=== PATIENT | male | born 1970 | race Caucasian/White ===

== ENCOUNTER 2019-04-27 08:19 | Outpatient (RCR) | payer MEDICARE, SELFPAY ==
[2019-04-27] VITALS (8 sets, daily range): BP systolic 84–112; BP diastolic 59–93; PULSE 82–93; RESP 14–16; TEMP 36.8–37.9; O2SAT 97–100
[2019-04-27 08:45] LABS: Hematocrit 22.9 % (42.0-52.0); Hemoglobin 7.2 g/dL (14.0-18.0)
[2019-04-27] MEDS: FUROSEMIDE INJ 40 MG/4 ML VIAL 20 MG IV PUSH (12:19)
== END 2019-07-26 23:59 | disposition home or self-care (01) ==
LOC: ANHCPCTRAN 08:19
PROVIDERS: PCP Family Medicine; Visit Provider Internal Medicine Hematology & Oncology
DX: C34.90 Malignant neoplasm of unspecified part of unspecified bronchus or lung (principal); D64.9 Anemia, unspecified
CPT/HCPCS: 36415; 36430; 85014; 85018; 86850; 86900; 86901; 86920; A9270; J1940; P9016

== ENCOUNTER 2019-07-08 15:52 | Outpatient (CLI) | payer MEDICARE, SELFPAY ==
--- NOTE | ~2019-07-08 | CT_ITS ---
EXAMINATION: CT chest abdomen pelvis w con EXAM DATE: 07/08/2019 16:49 INDICATION: Non-small cell lung cancer right upper lobe. L3, left ilium metastatic lesions. TECHNIQUE: Spiral CT of the chest, abdomen and pelvis was performed following intravenous injection o f 100 mL Omnipaque 350. Axial, coronal and sagittal images were reviewed. Coronal maximum intensity pixel images of chest reviewed. The dose-length product (DLP) for this examination was 313.50 mGy-c m. The exposure was tailored according to patient size (auto mA exposure control), and iterative rec onstruction (ASIR) was used as additional dose reduction technique. Comparison is made to prior exami nation from 05/27/2019, 05/14/2019. FINDINGS: CHEST: There is a left-sided Chemo-Port. There is mild to moderate emphysema. There is right upper l obe mass invading the posterior medial pleura and the right sides of the L2, L3, L4 and L5 vertebral bodies, the L2-L4 ribs posteromedially with pathological compression fractures L3, L4 and L5 unchange d. This mass measures about 3 x 5 cm in greatest axial dimension, appears slightly less bulky, but ov erall similar dimensions on prior chest CT 05/14/2019. Small pericardial effusion. There is debris in the right lower lobe bronchus. There is a precarinal lymph node measuring 1.6 x 0.8 cm, upper arita its of normal in size. No central pulmonary emboli. There is no pneumothorax. Heart normal in size . There is mild coronary arterial calcification, arterial sclerosis. ABDOMEN PELVIS: There is right liver lobe hypodense lesion measuring 1 cm, may have peripheral nodula r enhancement seen, probably a hemangioma but difficult to exclude metastatic lesion. The gallbladde r is contracted but otherwise unremarkable. Spleen, adrenal glands, pancreas are unremarkable. Con l and splenic veins are patent. Kidneys enhance symmetrically. There is no hydronephrosis. The pr ostate is unremarkable. The bladder is unremarkable. There is no retroperitoneal or pelvic lymphade nopathy. The appendix is normal. The stomach and small bowel are unremarkable. There is expected amount of c olonic stool. No free intraperitoneal gas. Lumbar fusion hardware, corpectomy L4-S1. Again there is left iliac osteolytic metastatic lesion with demineralized cortex. L3 osteolytic lesion also appe ars unchanged. Right third rib osteolytic lesion now with pathological fracture. Right sixth rib suba cute fracture. IMPRESSION: 1. Right upper lobe, posteromedial mass invading pleura, bones, may have slight decrease in bulk but overall dimensions not significantly changed. 2. Development of pathological right third rib fracture. Otherwise stable appearing osteolytic disea se. 3. Small liver lesion more likely hemangioma than metastatic. Reviewed, dictated and finalized at location A. ACUTE CARE NURSE IMPRESSION: 1. Right upper lobe, posteromedial mass invading pleura, bones, may have sligh t decrease in bulk but overall dimensions not significantly changed. 2. Development of pathological right third rib fracture. Otherwise stable appe aring osteolytic disease. 3. Small liver lesion more likely hemangioma than metastatic.
== END 2019-07-08 15:53 | disposition home or self-care (01) ==
LOC: ANHIMG 15:53
PROVIDERS: Visit Provider Internal Medicine Hematology & Oncology
DX: C34.90 Malignant neoplasm of unspecified part of unspecified bronchus or lung (principal); K76.89 Other specified diseases of liver
CPT/HCPCS: 71260; 74177; Q9967

== ENCOUNTER 2019-10-04 07:20 | Outpatient (CLI) | payer MEDICARE, SELFPAY ==
--- NOTE | ~2019-10-04 | CT_ITS ---
EXAMINATION: CT chest abdomen pelvis w con DATE: 10/04/2019 08:02 INDICATION: Non-small cell lung cancer TECHNIQUE: Transaxial computed tomographic images of the chest, abdomen, and pelvis were obtained aft er the administration of 100 cc of Omnipaque 350 intravenous contrast. The dose-length product (DLP) was 268.54 mGy-cm. Automated exposure control and iterative reconstruction technique were employed. COMPARISON: 07/08/2019 FINDINGS: CHEST CT: There is moderate emphysema. There has been slight interval decrease in size in a pleural-based mass of the posteromedial right lung apex. The mass measures 4.3 x 2.1 cm, previously 4.7 x 2.5 cm. There is unchanged erosion of the mass into the T2-T5 vertebral bodies and the right third through fifth ri bs. There are unchanged pathologic compression fractures of T3, T4, and T5. A left internal jugular P ort-A-Cath ends with its tip in the right atrium. The heart size is normal. There are no pathological ly enlarged thoracic lymph nodes. Healing fractures of the right lateral third rib and left posterior eighth rib are noted. ABDOMEN/PELVIS CT: A stable hemangioma is noted in the right hepatic lobe. The spleen, pancreas, gallbladder, and adrena l glands are normal. The kidneys are unremarkable. A large volume of colonic stool is present. No pat hologically enlarged abdominal or pelvic lymph nodes are identified. There is no free intraperitoneal gas or evidence of bowel obstruction. There is diffuse anasarca. Changes of anterior and posterior f usion are noted from L4 through S1. A stable lytic lesion of the L3 vertebral body is again noted. IMPRESSION: 1. Right upper lobe mass with slight decrease in size. Invasion of the chest wall, posterolateral upp er ribs, and adjacent vertebral bodies is unchanged. Pathologic vertebral body fractures and rib frac tures are stable. Reviewed, dictated and finalized at location A. IMPRESSION: 1. Right upper lobe mass with slight decrease in size. Invasion of the chest wa ll, posterolateral upper ribs, and adjacent vertebral bodies is unchanged. Path ologic vertebral body fractures and rib fractures are stable.
== END 2019-10-04 07:21 | disposition home or self-care (01) ==
LOC: ANHIMG 07:23
PROVIDERS: Visit Provider Internal Medicine Hematology & Oncology
DX: C34.90 Malignant neoplasm of unspecified part of unspecified bronchus or lung (principal); R91.8 Other nonspecific abnormal finding of lung field; M84.48XA Pathological fracture, other site, initial encounter for fracture
CPT/HCPCS: 71260; 74177; Q9967

== ENCOUNTER 2019-12-23 11:44 | Emergency (ER) | payer MEDICARE, SELFPAY ==
[2019-12-23 12:24] VITALS: BP 91/62; PULSE 88; RESP 14; TEMP 36.7; O2SAT 100
--- NOTE | 2019-12-23 12:26 | ED.GENADULT ---
HPI - General Adult General Chief complaint: Back Pain/Injury Stated complaint: has cancer in pain from lesions Time Seen by Provider: 12/23/19 12:27 History of Present Illness HPI narrative: 49-year-old male patient arrives to the ER accompanied by his with complaints of severe intolerable pain in his lower back. This patient has a significant history of small cell carcinoma of the lung and is currently on Keytruda. He is under care of an oncologist at [facility] and has received some radiation therapy and chemotherapy in the past. The patient is known to have some metastatic lesions to the lower back. Currently he is on fentanyl patch which is changed every 48 hours and he also gets morphine 60 mg twice a day for breakthrough pain as well as hydrocodone 10 mg every 4 hours. His last dose of hydrocodone was at 11:00 a.m.. The patient states that the pain is unbearable. His last fentanyl patch was changed yesterday. He has the usual complaints of feeling weak. However he denies any new complaints of any shortness of breath or fever or chills. The 0 states that he was scheduled for a CT scan at [facility] and since he has had that at the cancel it. She also indicates that he is supposed to see his oncologist on Friday and she is not sure when the CT scan will be repeated. Patient's indicates that he has had a low hemoglobin hematocrit in the past and she thinks that his color is off today. She would like some blood work done. Related Data Home Medications Medication Instructions Recorded Confirmed alprazolam 0.25 mg PO TID PRN 03/04/19 12/23/19 hydrocodone-acetaminophen 1 tablet PO Q4-6H PRN 03/04/19 12/23/19 calcium carbonate 600 mg PO TID 11/15/19 12/23/19 fentanyl 50 mcg TRANSDERMAL Q72H 12/23/19 12/23/19 morphine 60 mg PO BID 12/23/19 12/23/19 Allergies Allergy/AdvReac Type Severity Reaction Status Date / Time bee venom protein (honey bee) Allergy Severe Anaphylaxis Verified 11/15/19 14:22 ibuprofen Allergy Intermediate Hives Verified 11/15/19 14:22 Review of Systems Review of Systems: All systems reviewed & are unremarkable except as noted in HPI and below Constitutional: Constitutional: Denies chills and Denies fever(s) Eyes: Eyes: Reports no additional eye complaints ENT: Reports system reviewed and no additional complaints, except as documented and Reports as per HPI Cardiovascular: Cardiovascular: Reports no additional cardiovascular complaints Respiratory: Respiratory: Reports no additional respiratory complaints Genitourinary: Genitourinary: Reports no additional male genitourinary complaints Musculoskeletal: Musculoskeletal: Reports as per HPI, Reports back pain, Denies joint swelling and Denies muscle cramps Integumentary/Breasts: Skin/Breast: Reports system reviewed and no additional complaints, except as docu Neurologic: Reports system reviewed and no additional complaints, except as documented Psychiatric: Psychiatric: Reports no additional psychiatric complaints Endocrine: Endocrine: Reports no additional endocrine complaints PMFSH Past Medical History Medical History Bone metastasis Non-small cell lung cancer Surgical History Surgical History History of lumbar fusion Family History Family History Mother Hypertension Other Diabetes mellitus Family history of arthritis Family history of cardiovascular disease Family history of malignant neoplasm Social History Social History Smoking status: Former smoker Alcohol intake: current Gender identity (if verbalized by the patient): Male Exam Narrative: Exam Narrative: The patient is alert and oriented to time place and person he appears very cachectic and very ill. He is in significant amou
--- NOTE | 2019-12-23 12:30 | PC.NURSE ---
Pts fentanyl patches removed per spouse
[2019-12-23] MEDS: HYDROmorphone HCL 2 MG/ML VIAL 1 MG IV PUSH (12:50)
[2019-12-23 12:58] LABS: Hematocrit 26.7 % (40.0-54.0); Mean Corpuscular Volume 90.2 fL (78.0-102.0); Mean Platelet Volume 10.6 fl (8.7-11.0); Platelet Count Result 320 K/mm3 (150-420); Red Blood Count 2.96 M/mm3 (4.70-6.10); Red Cell Distribution Width 17.1 % (11.6-14.4)
[2019-12-23 13:04] LABS: White Blood Count 26.3 K/mm3 (4.8-10.8)
[2019-12-23 13:12] VITALS: BP 92/61; PULSE 82; RESP 18
[2019-12-23 13:12] LABS: Alanine Aminotransferase 8 U/L (16-63); Albumin Level 2.5 g/dL (3.4-5.0); Alkaline Phosphatase 143 U/L (46-116); Anion Gap 10.2 mmol/L (7-16); Aspartate Amino Transferase 16 U/L (15-37); Bilirubin,Total 0.2 mg/dL (0.00-1.00); Blood Urea Nitrogen 11 mg/dL (7-18); Calcium 8.4 mg/dL (8.5-10.1); Carbon Dioxide 28 mmol/L (21-32); Chloride 101 mmol/L (98-108); Estimated CRCL calculation 95 ml/min; Estimated Glomerular Filt Rate > 60; Glucose 93 mg/dL (70-99); Osmolality Calculated 279 mOsm/kg (285-295); Potassium 4.2 mmol/L (3.5-5.1); Sodium 135 mmol/L (136-145); Total Protein 7.9 g/dL (6.4-8.2)
[2019-12-23 13:25] LABS: Band Neutrophils Percent 0 % (0-6); Eosinophils Percent Manual 0 % (1-6); Lymphocytes Absolute Manual 1.84 K/mm3 (1.1-4.5); Lymphocytes Percent Manual 7 % (18-44); Monocytes Absolute Manual 1.05 K/mm3 (0.1-0.90); Monocytes Percent Manual 4 % (3-9); Neutrophils Percent Manual 89 % (46-73); Platelet Estimate Adequate (Adequate); Total Cells Counted 100
--- NOTE | 2019-12-23 13:46 | PC.NURSE ---
Dr. Jiménez speaking with Dr. Ochoa, pts oncologist at [facility].
--- NOTE | 2019-12-23 14:11 | PC.NURSE ---
[facility] CONTACTED FOR HOSPITALIST.
--- NOTE | 2019-12-23 14:48 | PC.NURSE ---
Pt requesting to speak with edp, edp aware.
--- NOTE | 2019-12-23 14:54 | PC.NURSE ---
Dr. Jiménez speaking with Daisy jay at [facility]
[2019-12-23 14:56] VITALS: BP 94/64; PULSE 82; RESP 16
[2019-12-23] MEDS: HYDROmorphone HCL 2 MG/ML VIAL 0.5 MG IV PUSH ×3 (15:05→16:50)
[2019-12-23 15:28] VITALS: BP 92/64; PULSE 88; RESP 16
[2019-12-23 16:25] VITALS: BP 93/61; PULSE 87
== END 2019-12-23 17:03 | disposition short-term general hospital (02) ==
PROVIDERS: Emergency Provider Emergency Medicine; PCP Internal Medicine Hematology & Oncology
DX: C34.90 Malignant neoplasm of unspecified part of unspecified bronchus or lung (principal); C79.51 Secondary malignant neoplasm of bone; R52 Pain, unspecified
CPT/HCPCS: 36415; 80053; 85025; 96374; 96376; 99285; J1170

== ENCOUNTER 2019-12-23 18:30 | Inpatient (IN) | payer MEDICARE, MEDICAID, SELFPAY ==
--- NOTE | ~2019-12-23 | CT_ITS ---
EXAMINATION: CT chst ab pel thor lum w EXAM DATE: 12/24/2019 14:57 INDICATION: Further evaluate cancer, underlying infection. Non-small cell lung cancer. TECHNIQUE: Spiral CT of the chest, abdomen and pelvis was performed following intravenous injection o f 100 mL Omnipaque 350. Axial, coronal and sagittal images were reviewed. Coronal maximum intensity pixel images of chest reviewed. Spiral CT thoracolumbar spine was performed with the same bolus of contrast. Axial, coronal and sagittal images of the thoracic spine were reviewed. Axial, coronal and sagittal images of the lumbar spine were reviewed. The dose-length product (DLP) for this examination was 413.12 mGy-cm. The exposure was tailored according to patient size (auto mA exposure control), and iterative reconstruction (ASIR) was used as additional dose reduction technique. Comparison is ma de to prior examination from 10/04/2019. FINDINGS: CHEST: Again there is right upper lobe mass near the apex posterior medially invading the pleura, ch est wall, bones. The size of mass and extent of bony invasion appears unchanged, with greatest axial dimension about 4.5 cm. Bony invasion present at the T2, T3, T4 and T5 vertebral bodies. There are pa thological compression fractures at T3-T4 and T5, with moderate to severe loss of height at T4, moder ate at T3, and mild to moderate at T5. The right side of these ribs are also invaded. There is also developing malignant soft tissue surrounding the spine from the mid aspect of T7 to the upper aspect of T9 with heterogeneous enhancement, some invasion of the T8 vertebral body and its le ft pedicle. There is epidural extension identified along the left half of the epidural space posterio r to the T8 vertebral body, probably causing moderate central canal stenosis. Might be something bartolo table by focal radiation. Please correlate for any neurological symptoms. There is 3rd rib similar soft tissue density surrounding the right 3rd rib laterally with heterogeneo us enhancement, osseous invasion and pathological fracture. There are no pleural or pericardial effusions. Tracheobronchial tree is patent. There is mild emphy sema and moderate hyperinflation. There is no mediastinal, hilar or axillary lymphadenopathy. There is no pneumothorax. Heart normal in size. ABDOMEN PELVIS: There is generalized body wall, mesenteric fat stranding, anasarca. Patient is cachec tic. Small right liver lobe lesion, measuring 7 mm, probably a hemangioma correlating with prior st udies. Gallbladder is unremarkable. No biliary obstruction. Portal and splenic veins are patent. Kidneys enhance symmetrically. There is no hydronephrosis. The prostate is unremarkable. The blad audie is unremarkable. There is no retroperitoneal or pelvic lymphadenopathy. There is mild scattere d arteriosclerotic disease. The appendix is not positively visualized. There is no pericecal inflammatory change to suggest appe ndicitis. The stomach and small bowel are unremarkable. There is moderate to large amount of colon ic stool. Scattered colonic diverticula, with sensitivity for diverticulitis significantly decreased from the anasarca, generalized edema. There may be small amount of free pelvic fluid. No free intra peritoneal gas. THORACOLUMBAR SPINE: Again there is osteolytic disease in the L3 vertebral body. There is large regio n of paraspinal soft tissue centered at this level, but extending from mid L2 to mid L4. There is quintin pected to be epidural extension probably causing moderate central canal stenosis at the L3 level. L4- S1 fusion is unchanged. There is mild to moderate lumbar spondylosis. Mild thoracic spondylosis. Ben tional thoracic findings were described above. IMPRESSION: 1. Stable appearance to the right upper lobe posterior medial mass with pleural, spinal invasion. 2. Developing paraspinal soft tissue
--- NOTE | ~2019-12-23 | MR_ITS ---
EXAMINATION: MR lumbar spine wo con EXAM DATE: 12/25/2019 13:36 INDICATION: Increasing back pain. TECHNIQUE: Multi-sequential, multiplanar MR images of the lumbar spine were obtained without contrast . Sagittal T1, T2, T2 fat saturation images. Axial T1 fat saturation sequence. Patient declined fur ther imaging due to pain. Comparison is made to prior examination from 08/30/2011. FINDINGS: There is abnormal bone marrow signal involving most of the L3 vertebral body with heterogen eous large amount of paraspinal abnormal signal centered along the anterolateral aspects of this vert ebral body, but extending up to mid L2 and down to mid L4 levels. At the L3 level abnormal paraspinal signal is up to about 2 cm in thickness anterolaterally, and extends about 4 mm posteriorly (the ant erior epidural space). This is causing mild to moderate central canal stenosis posterior to the L3 ve rtebral body. Also, evidence of extraosseous extension into the left L3-4 neural foramina, probably w ith moderate stenosis at this level. There is normal signal within the L2-3 disc space and mild disc desiccation at the L3-4 disc space, no edema (no evidence of discitis in spite of abnormal paraspinal signal crossing disc space). Posterior and interbody fusion L4-S1. The conus medullaris terminates a t the T12-L1 level and has normal signal intensity and morphology. There is mild to moderate stenosi s at the other right L3-4 and bilateral L4-5 neural foramen. Mild to moderate lower lumbar spondylos is. IMPRESSION: Abnormal marrow signal in L3 and larger paraspinal abnormal signal from L2-L4. Correlati ng with prior CT scans, most likely metastatic disease with extraosseous extension, necrosis assuming patient has been receiving chemotherapy. Would be unusual for osteomyelitis to extend from L2 to L4 and not cause discitis, and please note that same process suspected at mid thoracic level and right 3 rd rib. Reviewed, dictated and finalized at location A. IMPRESSION: Abnormal marrow signal in L3 and larger paraspinal abnormal signal from L2-L4. Correlating with prior CT scans, most likely metastatic disease wi th extraosseous extension, necrosis assuming patient has been receiving chemoth erapy. Would be unusual for osteomyelitis to extend from L2 to L4 and not cause discitis, and please note that same process suspected at mid thoracic level an d right 3rd rib.
--- NOTE | 2019-12-23 18:30 | ADMGEN ---
This patient, Tj Chavez, was admitted to Medical Room 345-. Patient/family oriented to hospital policies and general routines including ID bracelet, bed and alarms, visiting hours, pain management, procedures, bathroom and other care routines, personal items, smoking policy, room service/diet, and visiting hours. Valuables list has been completed. Information on how to activate the Rapid Response Team has been discussed. Patient/Family are encouraged to report perceived risks to care and to ask questions if they do not understand what they are told or what they should do.
[2019-12-23 19:25] VITALS: BP 92/52; PULSE 90; RESP 14; TEMP 36.2; O2SAT 100
[2019-12-23 19:29] VITALS: BMI 14.6
[2019-12-23 21:00] VITALS: PULSE 77; RESP 18; O2SAT 100
--- NOTE | 2019-12-23 21:45 | PM.IMHP ---
H&P: HPI History of Present Illness Date/Time: 12/23/19 21:45 Chief complaint: Acute on chronic pain. Narrative: Tj Chavez is an unfortunate 49-year-old male with metastatic lung cancer who presented to the emergency department at [facility] earlier today with acute on chronic pain. He was transferred to [facility] for consultation with his oncologist, Dr. Ochoa. He was diagnosed with oligometastatic non-small cell lung cancer (poorly differentiated squamous cell carcinoma) arising in the right upper lobe with bony metastases to L3 spine in inferior iliac side of the left sacroiliac joint. Initially he received radiation to the right upper lobe mass and is on Keytruda per Dr. Ochoa. He completed a course of palliative radiotherapy to L3 and the left sacroiliac region with minimal pain relief, and he continues to have fairly constant, sharp shooting pain in the lower back and left hip despite his use of at least 150 micrograms Fentanyl patch, morphine 60 milligrams b.i.d., and hydrocodone 10 milligrams q.4 hours for breakthrough pain. He has tried medical marijuana in the past, which seems to help somewhat. He also uses heating pads and I never go anywhere without them. On exam, his back pain seems to be worse in the upper thoracic region and with further questioning he denies falls, injury, or trauma. To his knowledge, he has not had metastatic disease in that area. He also denies fever. No bowel or bladder incontinence. He denies saddle anesthesia. It sounds like he has chronic neuropathy in his hands and feet, and this is unchanged. No focal lower extremity weakness. Review of Systems Review of Systems: Narrative: Twelve systems were reviewed with pertinent positives and negatives as per HPI. No fever. Occasional chills and sweats. He has lost 35 pound since being diagnosed with lung cancer last year. He denies dysphagia and concerns for aspiration. He frequently has a cough, occasionally productive of clear sputum. He reports that his appetite is terrible and I just cannot eat. He has frequent nausea. He denies vomiting. He suffers from constipation due to his pain medications. No dysuria or hematuria. He denies urinary retention. Except as documented, all other systems were reviewed and are negative. [facility] Past Medical History Medical History (Updated 12/23/19 @ 23:13 by Mayte Latham PA-C) Bone metastasis Metastatic squamous cell lung cancer to L3 and left sacroiliac region, status post palliative radiation in spring 2019. Chronic anemia Chronic pain syndrome Secondary to bony metastatic disease. On chronic opiate therapy. Non-small cell lung cancer Poorly differentiated squamous cell carcinoma diagnosed in 2019, status post radiation to a right upper lobe mass in the fall of 2018. Currently on Keytruda per Dr. Ochoa. CT of the chest, abdomen, and pelvis dated 10/04/2019 showed slight decrease in size of a right upper lobe mass with invasion of the chest wall, posterior lateral upper ribs, and adjacent vertebral bodies with pathologic vertebral body fractures and rib fractures, which were stable. Surgical History Surgical History (Updated 12/23/19 @ 23:13 by Mayte Latham PA-C) History of lumbar fusion L4-S1 fusion. Status post excision of vocal cord nodule Family History Family History Mother Hypertension Other Diabetes mellitus Family history of arthritis Family history of cardiovascular disease Family history of malignant neoplasm Social History Social History (Updated 12/23/19 @ 23:08 by Mayte Latham PA-C) Social History: Surrogate decision maker: Dora Chavez, spouse. Code status: Full code. Smoking packs per day: 1 Smoking cigarettes per day: 20.0 Years smoked: 30 Smoking pack-years: 30.00 Smoking status: Former smoker Second hand tobacco smoke exposure: No
[2019-12-23 22:00] VITALS: BP 84/62; PULSE 77; RESP 18; TEMP 37.2; O2SAT 100
[2019-12-24] VITALS (7 sets, daily range): BP systolic 82–104; BP diastolic 48–77; PULSE 72–79; RESP 16–20; TEMP 36.1–37; O2SAT 98–100; BMI 14.6
[2019-12-24] MEDS: SODIUM CHLORIDE 0.9% IV 1,000 ML 100 ML IV CONT (00:14)
[2019-12-24 00:35] LABS: Add Urine Microscopic? YES; Appearance Urine Clear (Clear); Bacteria Urine Trace /hpf; Bilirubin Urine Negative (Negative); Blood Urine Negative (Negative); Color Urine Yellow (Yellow); Glucose Urine UA Negative (Negative); Ketones Urine Negative (Negative); Leukocyte Esterase Ur Negative LEU/UL (Negative); Mucus Urine Heavy /lpf; Nitrate Urine Negative (Negative); Protein Urine 1+ mg/dL (Negative); WBC Urine 0-3 /hpf
[2019-12-24 05:37] LABS: Basophils Absolute Auto 0.1 K/mm3 (0.0-0.1); Basophils Percent Auto 0.2 % (0.2-1.2); Eosinophils Percent Auto 0.1 % (0-4.4); Hematocrit 26.3 % (42.0-52.0); Hemoglobin 7.9 g/dL (14.0-18.0); Immature Granulocyte Absolute 0.35 K/mm3 (0.00-0.031); Immature Granulocyte Percent A 1.5 % (0-0.5); Lymphocytes Absolute Auto 0.81 K/mm3 (0.9-3.2); Lymphocytes Percent Auto 3.6 % (18.3-44.2); Mean Corpuscular Hemoglobin 26.9 pg (26-34); Mean Corpuscular Volume 89.5 fl (80-100); Mean Platelet Volume 9.2 fl (7.4-10.4); Monocytes Absolute Auto 0.8 K/mm3 (0.1-0.6); Monocytes Percent Auto 3.4 % (2.6-8.5); Neutrophils Absolute Auto 20.7 K/mm3 (1.3-6.7); Neutrophils Percent Auto 91.2 % (45.5-73.1); Platelet Count Result 265 k/mm3 (150-375); Red Blood Count 2.94 M/mm3 (4.6-6.20); White Blood Count 22.7 K/mm3 (4.5-10.0)
[2019-12-24] MEDS: ALPRAZolam 0.5 MG TABLET PO ×3 (06:40→17:51)
[2019-12-24 07:07] LABS: Albumin Level 3.2 g/dL (3.5-5.1); Alkaline Phosphatase 148 U/L (38-126); Aspartate Amino Transferase 14 U/L (17-59); Bilirubin,Total 0.1 mg/dL (0.2-1.3); Blood Urea Nitrogen 9 mg/dL (9-20); Calcium 7.9 mg/dL (8.4-10.2); Carbon Dioxide 26 mmol/L (22-30); Chloride 104 mmol/L (98-107); Estimated CRCL calculation 139 ml/min; Estimated Glomerular Filt Rate > 60; Glucose 100 mg/dL (75-110); Sodium 136 mmol/L (137-145)
[2019-12-24 07:08] LABS: Alanine Aminotransferase < 6 U/L (4-50)
[2019-12-24 07:33] LABS: Anion Gap 10.4 mmol/L (7-16); Potassium 4.4 mmol/L (3.4-5.0)
[2019-12-24 07:43] LABS: CRP 17.2 mg/dL (<1.0)
[2019-12-24] MEDS: FERROUS SULFATE 324 MG TABLET PO (08:23)
[2019-12-24] MEDS: CALCIUM CARBONATE (OSCAL) 500 MG TABLET PO ×3 (08:23→16:33)
[2019-12-24] MEDS: DOCUSATE SODIUM 100 MG CAPSULE PO ×2 (08:23→16:33)
--- NOTE | 2019-12-24 14:03 | PM.IMPN ---
Progress Note: A&P Assessment and Plan (1) Intractable pain: Code(s): R52 - Pain, unspecified Status: Inactive Assessment and Plan: Patient with intractable back and left hip pain due to bony metastases. Given leukocytosis, would be prudent to obtain MRI to evaluate /rule out abscess. The patient cannot tolerate an MRI of his spine because of the increased pain. I talked to Dr. Ochoa who recommended getting a CT scan of his spine instead. CT Chest/Abd/Pelvis/Spine was ordered and pending results. Dr. Ochoa recommending starting antibiotics if there is suspicion of abscess. He was started on IV ceftriaxone and vancomycin and blood cultures were taken. Dr. Ochoa spent much time talking to the patient and his and they are not ready for hospice at this time. They have talked about palliative care but they do not know if there is any coverage in the area that they live. He has plans to continue Keytruda treatment next week as an outpatient. He is continued on his home pain medications and Dilaudid available for breakthrough pain continue monitoring the patient's pain and symptoms. Pending CT scan of his back. (2) Non-small cell lung cancer: Code(s): C34.90 - Malignant neoplasm of unspecified part of unspecified bronchus or lung Status: Acute Assessment and Plan: Status post radiation of a right upper lobe mass in fall 2018 and palliative radiation to bony metastases in spring 2019. (3) Bone metastasis: Code(s): C79.51 - Secondary malignant neoplasm of bone Status: Acute Assessment and Plan: Status post radiation of a right upper lobe mass in fall 2018 and palliative radiation to bony metastases in spring 2019. (4) Chronic anemia: Code(s): D64.9 - Anemia, unspecified Status: Acute Assessment and Plan: Hemoglobin and hematocrit are stable on review of previous labs. (5) Leukocytosis: Code(s): D72.829 - Elevated white blood cell count, unspecified Status: Acute Assessment and Plan: White blood cell count appears to be chronically elevated, possibly leukemoid reaction. Given increasing back pain, and pain in a new region Further imaging was ordered to rule out underlying abscess or infection causing increased pain. Pending CT scan results. In the meantime I talked to Dr. Ochoa who recommended starting IV antibiotics if there is any concerns of an underlying infection as the cause. Will continue monitoring CBC with differential daily, IV antibiotics, blood cultures were sent and pending. Time Spent With Patient Time with patient: 25 - 35 minutes Subjective Date/time seen: 12/24/19 14:03 Interval history: Date of service 12/24/2019: patient is on chronic pain medication due to his metastatic disease to his bone. Most of his pain is located to his lower spine but most of his pain recently has been to his left hip which is new. His pain was uncontrolled at home he came to the emergency room for further evaluation. He states now he is feeling more comfortable and his pain is only rated a 5/10 at this time. He states he would like to be discharged home. He denies any chest pain, shortness of breath, cough, fever, chills, nausea, vomiting, abdominal pain, constipation, diarrhea, leg swelling, calf pain or any other symptoms at this time. Review of Systems Review of Systems: All systems reviewed & are unremarkable except as noted in HPI and below Exam Narrative: Exam Narrative: General: 49-year-old cachectic, frail, man who appears much older than stated age sitting up in bed on his left side. Appears comfortable. In no acute distress. Skin:
--- NOTE | 2019-12-24 15:58 | PDONCCN ---
[facility] - Date of Consult Date/Time: 12/24/19 15:58 Requesting Physician: Liana Calles PA-C Primary Care Provider: Tra Ochoa MD - Consult Narrative Reason for consult: Metastatic non-small cell lung cancer Narrative: Tj Chavez is a 49 year old male This is the 49-year-old male with history of metastatic non-small cell lung cancer with bone metastasis. Patient is status post radiation therapy treatment with some pain control initially but now his pain has gotten worse despite being on fentanyl patch 150 micro g and morphine 60 mg b.i.d. along with hydrocodone 10 mg every 3-4 hours. He is currently on maintenance Keytruda treatment and due to have treatment next week. He now came into the hospital with acute on chronic pain. Due to elevated white blood cell count there was a concern of spine infection and CT scan was ordered. He remains quite tired and fatigue and continues to lose weight. He has been eating poorly. He denies any bleeding. Denies any headache. No other new complaints. Review of Systems - Review of Systems All systems reviewed & are unremarkable except as noted in HPI and [facility] Medical History: Medical History (Last Reviewed 12/24/19 @ 16:00 by Tra Ochoa MD) Bone metastasis Metastatic squamous cell lung cancer to L3 and left sacroiliac region, status post palliative radiation in spring 2019. Chronic anemia Chronic pain syndrome Secondary to bony metastatic disease. On chronic opiate therapy. Non-small cell lung cancer Poorly differentiated squamous cell carcinoma diagnosed in 2018, status post radiation to a right upper lobe mass in the fall of 2018. Currently on Keytruda per Dr. Ochoa. CT of the chest, abdomen, and pelvis dated 10/04/2019 showed slight decrease in size of a right upper lobe mass with invasion of the chest wall, posterior lateral upper ribs, and adjacent vertebral bodies with pathologic vertebral body fractures and rib fractures, which were stable. Surgical History: Surgical History (Last Reviewed 12/24/19 @ 16:00 by Tra Ochoa MD) History of lumbar fusion L4-S1 fusion. Status post excision of vocal cord nodule Family History: Family History (Last Reviewed 12/24/19 @ 16:00 by Tra Ochoa MD) Mother Hypertension Other Diabetes mellitus Family history of arthritis Family history of cardiovascular disease Family history of malignant neoplasm - Social History Social History: Social History (Last Reviewed 12/24/19 @ 16:00 by Tra Ochoa MD) Gender Identity: Gender identity (if verbalized by the patient): Male Alcohol Use: Alcohol intake: never Substance Use: Substance use: never Others: Spiritual care concerns: No Living Arrangements: Living arrangements: with family Oppucation/Education: Occupation/Education: unemployed Smoking Status: Smoking status: Former smoker Second hand tobacco smoke exposure: No Smoking end date: 10/17/11 Smoking Pack-years: Smoking packs per day: 1 Smoking cigarettes per day: 20.0 Years smoked: 30 Smoking pack-years: 30.00 Meds Home Medications Medication Instructions Recorded Confirmed Type alprazolam 0.5 mg PO TID PRN 03/04/19 12/23/19 History hydrocodone-acetaminophen 1 tablet PO Q4-6H PRN 03/04/19 12/23/19 History calcium carbonate 600 mg PO TID 11/15/19 12/23/19 History docusate sodium [Colace] 100 mg PO BID 12/23/19 12/23/19 History fentanyl 50 mcg TRANSDERMAL Q72H 12/23/19 12/23/19 History fentanyl 100 mcg TRANSDERMAL Q72H 12/23/19 12/23/19 History ferrous sulfate 325 mg PO DAILY 12/23/19 12/23/19 History morphine 60 mg PO BID 12/23/19 12/23/19 History ondansetron HCl [Zofran] 4 mg PO Q6H 12/23/19 12/23/19 History prochlorperazine maleate 10 mg PO Q6H PRN 12/23/19 12/23/19 History [Compazine] Allergies Allergy/AdvReac Type Severity Reaction Status Date / Time bee venom protein
[2019-12-24] MEDS: polyethylene glycoL 3350 17 GM POWD.PACK PO (20:40)
[2019-12-25 02:20] VITALS: BP 98/74; PULSE 79; RESP 18; TEMP 36.4; O2SAT 97
[2019-12-25 05:56] LABS: Hematocrit 27.9 % (42.0-52.0); Hemoglobin 8.5 g/dL (14.0-18.0); Mean Corpuscular HGB Conc 30.5 g/dl (32-36); Mean Corpuscular Hemoglobin 27.2 pg (26-34); Mean Corpuscular Volume 89.1 fl (80-100); Mean Platelet Volume 9.4 fl (7.4-10.4); Platelet Count Result 341 k/mm3 (150-375); Red Blood Count 3.13 M/mm3 (4.6-6.20); Red Cell Distribution Width 16.7 % (11.5-14.5); White Blood Count 24.7 K/mm3 (4.5-10.0)
[2019-12-25 06:23] LABS: Alanine Aminotransferase < 6 U/L (4-50); Albumin Level 3.3 g/dL (3.5-5.1); Alkaline Phosphatase 139 U/L (38-126); Anion Gap 6 mmol/L (8-16); Aspartate Amino Transferase 14 U/L (17-59); Bilirubin,Total < 0.1 mg/dL (0.2-1.3); Blood Urea Nitrogen 8 mg/dL (9-20); CRP 12.1 mg/dL (<1.0); Calcium 8.4 mg/dL (8.4-10.2); Carbon Dioxide 26 mmol/L (22-30); Chloride 100 mmol/L (98-107); Estimated CRCL calculation 139 ml/min; Estimated Glomerular Filt Rate > 60; Glucose 94 mg/dL (75-110); Potassium 4.1 mmol/L (3.4-5.0); Sodium 132 mmol/L (137-145)
[2019-12-25 06:36] VITALS: BP 95/72; PULSE 72; RESP 16; TEMP 36.2; O2SAT 100
[2019-12-25 08:00] VITALS: PULSE 72; RESP 16; O2SAT 100
[2019-12-25] MEDS: FERROUS SULFATE 324 MG TABLET PO (09:08)
[2019-12-25] MEDS: CALCIUM CARBONATE (OSCAL) 500 MG TABLET PO ×3 (09:08→16:07)
[2019-12-25] MEDS: DOCUSATE SODIUM 100 MG CAPSULE PO ×2 (09:09→16:07)
--- NOTE | 2019-12-25 10:46 | PC.NURSE ---
Patient to take miralax after MRI.
[2019-12-25] MEDS: ALPRAZolam 0.5 MG TABLET PO ×2 (12:58→22:29)
[2019-12-25] MEDS: polyethylene glycoL 3350 17 GM POWD.PACK PO (13:59)
--- NOTE | 2019-12-25 14:24 | PM.IMPN ---
Progress Note: A&P Assessment and Plan (1) Intractable pain: Code(s): R52 - Pain, unspecified Status: Inactive Assessment and Plan: Patient with intractable back and left hip pain due to bony metastases. Given leukocytosis, would be prudent to obtain MRI to evaluate /rule out abscess. CT Chest/Abd/Pelvis/Spine was ordered which showed worsening Metastatic disease without note of a spinal abscess. I explained to the patient that an MRI is the only test to rule out a spinal abscess and he is in agreement to try and tolerate the MRI again since his pain is much better controlled. MRI is pending at this time but he was not able to tolerate the entire imaging. Dr. Ochoa recommending starting antibiotics if there is suspicion of abscess. He was started on IV ceftriaxone and vancomycin and blood cultures were taken, And pending. Dr. Ochoa spent much time talking to the patient and his and they are not ready for hospice at this time. They have talked about palliative care but they do not know if there is any coverage in the area that they live. He has plans to continue Keytruda treatment next week as an outpatient. He is continued on his home pain medications and Dilaudid available for breakthrough pain continue monitoring the patient's pain and symptoms. Pending MRI of his back. (2) Non-small cell lung cancer: Code(s): C34.90 - Malignant neoplasm of unspecified part of unspecified bronchus or lung Status: Acute Assessment and Plan: Status post radiation of a right upper lobe mass in fall 2018 and palliative radiation to bony metastases in spring 2019. (3) Bone metastasis: Code(s): C79.51 - Secondary malignant neoplasm of bone Status: Acute Assessment and Plan: Status post radiation of a right upper lobe mass in fall 2018 and palliative radiation to bony metastases in spring 2019. (4) Chronic anemia: Code(s): D64.9 - Anemia, unspecified Status: Acute Assessment and Plan: Hemoglobin and hematocrit are stable on review of previous labs. (5) Leukocytosis: Code(s): D72.829 - Elevated white blood cell count, unspecified Status: Acute Assessment and Plan: White blood cell count appears to be chronically elevated, possibly leukemoid reaction. Given increasing back pain, and pain in a new region Further imaging was ordered to rule out underlying abscess or infection causing increased pain. Pending MRI scan results. In the meantime I talked to Dr. Ochoa who recommended starting IV antibiotics if there is any concerns of an underlying infection as the cause. Infectious Disease was also consulted for further evaluation input on underlying infection or spinal abscess. Will continue monitoring CBC with differential daily, IV antibiotics, blood cultures were sent and pending. Time Spent With Patient Time with patient: 25 - 35 minutes Subjective Date/time seen: 12/25/19 14:24 Interval history: Patient is on chronic pain medication due to his metastatic disease to his bone. Most of his pain is located to his lower spine but most of his pain recently has been to his left hip which is new. His pain was uncontrolled at home he came to the emergency room for further evaluation. Date of service 12/25/2019: He states now he is feeling more comfortable and denies much pain at all at this time. He states he is having bowel movements does not believe he is constipated. He states he would like to be discharged home. He is willing to stay another night for further evaluation workup to rule out underlying infection. He denies any chest pain, shortness of breath,
[2019-12-25 14:25] VITALS: BP 98/64; PULSE 77; RESP 18; TEMP 36.5; O2SAT 100
[2019-12-25 21:49] VITALS: BP 99/71; PULSE 74; RESP 16; TEMP 36.4; O2SAT 100
[2019-12-26 02:06] VITALS: BP 93/68; PULSE 70; RESP 16; TEMP 36.4; O2SAT 100
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
[2019-12-26 03:23] LABS: Vancomycin Trough 8.6 ug/mL (10.0-20.0)
[2019-12-26 05:54] LABS: Basophils Absolute Auto 0.1 K/mm3 (0.0-0.1); Basophils Percent Auto 0.3 % (0.2-1.2); Eosinophils Percent Auto 0.2 % (0-4.4); Hematocrit 23.3 % (42.0-52.0); Hemoglobin 7.3 g/dL (14.0-18.0); Immature Granulocyte Absolute 0.31 K/mm3 (0.00-0.031); Immature Granulocyte Percent A 1.6 % (0-0.5); Lymphocytes Absolute Auto 0.78 K/mm3 (0.9-3.2); Lymphocytes Percent Auto 3.9 % (18.3-44.2); Mean Corpuscular HGB Conc 31.3 g/dl (32-36); Mean Corpuscular Hemoglobin 27.1 pg (26-34); Mean Corpuscular Volume 86.6 fl (80-100); Mean Platelet Volume 9.4 fl (7.4-10.4); Monocytes Absolute Auto 1.1 K/mm3 (0.1-0.6); Monocytes Percent Auto 5.5 % (2.6-8.5); Neutrophils Absolute Auto 17.7 K/mm3 (1.3-6.7); Neutrophils Percent Auto 88.5 % (45.5-73.1); Platelet Count Result 250 k/mm3 (150-375); Red Blood Count 2.69 M/mm3 (4.6-6.20); Red Cell Distribution Width 17.1 % (11.5-14.5)
[2019-12-26 06:19] VITALS: BP 91/59; PULSE 72; RESP 16; TEMP 36.4; O2SAT 100
[2019-12-26 08:00] VITALS: PULSE 72; RESP 16; O2SAT 100
[2019-12-26 08:13] LABS: Anion Gap 8 mmol/L (8-16); Blood Urea Nitrogen 10 mg/dL (9-20); CRP 8.7 mg/dL (<1.0); Calcium 8.4 mg/dL (8.4-10.2); Carbon Dioxide 24 mmol/L (22-30); Chloride 101 mmol/L (98-107); Estimated CRCL calculation 139 ml/min; Estimated Glomerular Filt Rate > 60; Glucose 99 mg/dL (75-110); Potassium 3.9 mmol/L (3.4-5.0); Sodium 133 mmol/L (137-145)
[2019-12-26] MEDS: polyethylene glycoL 3350 17 GM POWD.PACK PO (08:16)
[2019-12-26] MEDS: CALCIUM CARBONATE (OSCAL) 500 MG TABLET PO ×2 (08:17→12:44)
[2019-12-26] MEDS: DOCUSATE SODIUM 100 MG CAPSULE PO (08:17)
[2019-12-26] MEDS: FERROUS SULFATE 324 MG TABLET PO (08:17)
[2019-12-26 12:32] VITALS: BP 92/63; PULSE 80; RESP 12; TEMP 36.8; O2SAT 100
[2019-12-26] MEDS: ALPRAZolam 0.5 MG TABLET PO (14:18)
--- NOTE | 2019-12-26 15:16 | WPDINFPN2 ---
Progress Note: A&P Assessment and Plan (1) Leukocytosis: Code(s): D72.829 - Elevated white blood cell count, unspecified Status: Acute Assessment and Plan: chronic leukocytosis, and abn spine imaging, due to tumor, there is no infection REC Stop antibiotics, ok home Subjective Date/time seen: 12/26/19 15:16 Objective Data Vital Signs Vital Signs: Vital Signs - 24 hr 12/25/19 21:49 12/26/19 02:06 12/26/19 06:19 Temperature 36.4 C L 36.4 C L 36.4 C L Pulse Rate 74 70 72 Respiratory Rate 16 16 16 Blood Pressure 99/71 L 93/68 L 91/59 L Pulse Oximetry 100 100 100 12/26/19 08:00 12/26/19 12:32 Temperature 36.8 C Pulse Rate 72 80 Respiratory Rate 16 12 Blood Pressure 92/63 L Pulse Oximetry 100 100 Intake/Output Intake/Output: Intake & Output 12/23/19 12/24/19 12/25/19 12/26/19 23:59 23:59 23:59 23:59 Intake Total 2090 1810 590 Output Total 500 Balance 1590 1810 590 Meds/Results Medications: Active Medications Generic Name Dose Route Start Last Admin Trade Name Freq PRN Reason Stop Dose Admin Acetaminophen 650 mg 12/23/19 18:30 Tylenol Tablet PO Q4H PRN Mild Pain (1-3) or Fever Hydrocodone Bitart/Acetaminophen 1 tab 12/23/19 22:54 12/26/19 11:29 [place] 10-325 Mg PO 1 tab Q4-6H PRN Administration Pain (Scale Score 4-6) Alprazolam 0.5 mg 12/23/19 22:53 12/26/19 14:18 Xanax PO 0.5 mg TID PRN Administration Anxiety Calcium Carbonate 500 mg 12/24/19 09:00 12/26/19 12:44 Oscal 500 Mg PO 01/23/20 09:01 500 mg TID DONATO Administration Docusate Sodium 100 mg 12/24/19 09:00 12/26/19 08:17 Colace Capsule PO 100 mg BID DONATO Administration Fentanyl 100 mcg 12/24/19 03:00 12/24/19 03:24 [place] 100 Mcg Patch TRANSDERM 100 mcg Q72HR DONATO Administration Fentanyl 50 mcg 12/25/19 09:00 12/25/19 15:50 [place] 50 Mcg Patch TRANSDERM 50 mcg Q72HR DONATO Administration Ferrous Sulfate 324 mg 12/24/19 08:00 12/26/19 08:17 Ferrous Sulfate PO 324 mg DAILY@0800 DONATO Administration Hydromorphone HCl 1 mg 12/24/19 18:05 12/26/19 13:54 Dilaudid Inj IV PUSH 1 mg Q3H PRN Administration Pain Rated 7-10 Morphine Sulfate 60 mg 12/24/19 09:00 12/26/19 08:16 Ms Contin PO 60 mg BID DONATO Administration Ondansetron HCl 4 mg 12/24/19 17:18 Zofran Inj IV PUSH Q4H PRN Nausea And Vomiting Polyethylene Glycol 17 gm 12/24/19 21:00 12/26/19 08:16 Miralax PO 17 gm Q12HR DONATO Administration Radiology Results: ITS Impressions Chest/Abdomen/Pelvis/Spine CT 12/24/19 15:38 IMPRESSION: 1. Stable appearance to the right upper lobe posterior medial mass with pleural, spinal invasion. 2. Developing paraspinal soft tissue centered at T8 with osseous invasion and epidural extension in left side of spinal canal probably causing moderate canal stenosis. 3. Developing right 3rd rib lesion laterally, with extraosseous extension pathological fracture. 4. L3 lesion with increasing paraspinal component and also likely anterior epidural extension and moderate central canal stenosis. 5. Anasarca. 6. Moderate to large amount of colonic stool. 7. Colonic diverticulosis. Lumbar Spine MRI 12/25/19 14:51 IMPRESSION: Abnormal marrow signal in L3 and larger paraspinal abnormal signal from L2-L4. Correlating with prior CT scans, most likely metastatic disease with extraosseous extension, necrosis assuming patient has been receiving chemotherapy. Would be unusual for osteomyelitis to extend from L2 to L4 and not cause discitis, and please note that same process suspected at mid thoracic level and right 3rd rib. Labs Labs: Laboratory Results - last 24 hr 12/26/19 12/26/19 12/26/19 02:08 05:41 05:41 WBC 20.0 H RBC 2.69 L Hgb 7.3 L Hct 23.3 L MCV 86.6 MCH 27.1 MCHC 31.3 L RDW 17.1 H Plt Count 250 MPV 9.4 Immature Gra
--- NOTE | 2019-12-26 15:27 | PM.DS ---
DS: Admitting Diagnosis Admitting Diagnosis Admitting Diagnosis: Pain, unspecified DS: Discharge Diagnosis Discharge Diagnosis (1) Intractable pain: Code(s): R52 - Pain, unspecified Status: Inactive Assessment and Plan: Patient with intractable back and left hip pain due to bony metastases. Given leukocytosis, would be prudent to obtain MRI to evaluate /rule out abscess. CT Chest/Abd/Pelvis/Spine was ordered which showed worsening Metastatic disease without note of a spinal abscess. I explained to the patient that an MRI is the only test to rule out a spinal abscess and he is in agreement to try and tolerate the MRI again since his pain is much better controlled. MRI is pending at this time but he was not able to tolerate the entire imaging. Dr. Ochoa recommending starting antibiotics if there is suspicion of abscess. He was started on IV ceftriaxone and vancomycin and blood cultures were taken, and pending. Dr. Ochoa spent much time talking to the patient and his and they are not ready for hospice at this time. They have talked about palliative care but they do not know if there is any coverage in the area that they live. He has plans to continue Keytruda treatment next week as an outpatient. The patient is secondary to worsening metastatic disease and Dr. Davidson does not believe there is any acute infection at this time. Will discharge the patient home to follow up with Dr. Ochoa. Dr. Ochoa recommended him discontinuing his [place] and prescribing Dilaudid 2 mg Q4-6 hrs for breaththrough pain. The patient and understand and agree with the plan. All questions answered. (2) Non-small cell lung cancer: Code(s): C34.90 - Malignant neoplasm of unspecified part of unspecified bronchus or lung Status: Acute Assessment and Plan: Status post radiation of a right upper lobe mass in fall 2018 and palliative radiation to bony metastases in spring 2019. (3) Bone metastasis: Code(s): C79.51 - Secondary malignant neoplasm of bone Status: Acute Assessment and Plan: Status post radiation of a right upper lobe mass in fall 2018 and palliative radiation to bony metastases in spring 2019. (4) Chronic anemia: Code(s): D64.9 - Anemia, unspecified Status: Acute Assessment and Plan: Hemoglobin and hematocrit are stable on review of previous labs. (5) Leukocytosis: Code(s): D72.829 - Elevated white blood cell count, unspecified Status: Acute Assessment and Plan: White blood cell count appears to be chronically elevated, possibly leukemoid reaction. Given increasing back pain, and pain in a new region. CT Scan showed Stable appearance to the right upper lobe posterior medial mass with pleural, spinal invasion. Developing paraspinal soft tissue centered at T8 with osseous invasion and epidural extension in left side of spinal canal probably causing moderate canal stenosis. Developing right 3rd rib lesion laterally, with extraosseous extension pathological fracture. L3 lesion with increasing paraspinal component and also likely anterior epidural extension and moderate central canl stenosis. MRI that was able to be completed without contrast showed Abnormal marrow signal in L3 and larger paraspinal abnormal signal from L2-L4. Correlating with prior CT scans, most likely metastatic disease with extraosseous extension, necrosis assuming patient has been receiving chemotherapy. Would be unusual for osteomyelitis to extend from L2 to L4 and not cause discitis, and please note that same process suspected at mid thoracic level and right 3rd rib Dr. Davidson evaluated the patient and feels he is stable at this time and without any
--- NOTE | 2019-12-27 07:50 | CONS_ITS ---
DATE OF CONSULTATION: 12/26/2019 REASON FOR CONSULTATION: Abnormal imaging of spine and leukocytosis. HISTORY OF PRESENT ILLNESS: The patient is a 49-year-old male who has known metastatic non-small cell lung cancer. It is metastatic to the bones including the spine. He has undergone previous chemotherapy and radiation therapy. He now has a port in place and is given every 3 week chemotherapy. He has had progression in his disease unfortunately. He presented to an outside hospital on the with ongoing spine pain and was transferred here. Due to concern over infection, ceftriaxone and vancomycin were started and consultation requested. The patient has been on no other recent antibiotics for any purpose. No immunosuppressants. He has had previous lumbar fusions, 3 different operations all with the same purpose. Last 1 was 11 years ago. There were no postop wound infections that he is aware of. He has no prosthetic devices in place other than his Port-A-Cath. There has been no drainage from his skin over the spinal area, and no fevers, chills, or sweats. ALLERGIES: NONE PERTINENT. HABITS: Ex-smoker. No alcohol. PRESENT MEDICATIONS: List reviewed, above antibiotics. PAST MEDICAL HISTORY: Vocal cord nodule, chronic anemia. Otherwise as above. FAMILY HISTORY: Diabetes, hypertension, cancer. SOCIAL HISTORY: He is , 3 children. Does not work outside the home. Lives in [place], [place]. REVIEW OF SYSTEMS: 14-point review otherwise negative. PHYSICAL EXAMINATION: GENERAL: This is a cachectic male, no acute distress. VITAL SIGNS: 92/63, 80, 12, afebrile consistently, 100% room air. SKIN: Sallow. Poor turgor. Few ecchymoses. No rashes. No suspicious lesions. NODES: He has no occipital nor cervical adenopathy. EENT: Conjunctivae are normal. Eyes are sunken. The pupils are equal, round, reactive to light. He has arcus senilis. The oropharynx, oral mucosa normal. Multiple missing teeth, but dentition otherwise good repair. NECK: No stridor. No masses. No meningismus. LUNGS: Clear to auscultation and percussion with diminished breath sounds. CARDIAC: Regular rate and rhythm. No murmur, gallop, or rub. Pulses 1+. ABDOMEN: No hepatosplenomegaly. Scaphoid, nontender. No masses. EXTREMITIES: Muscle wasting. No clubbing, cyanosis, edema. LABORATORY STUDIES: I reviewed all of his past white blood cell counts in the computer system, and except for a single determination all have been markedly abnormal. Currently, white count 20, hemoglobin 7.3, platelets are 250. He has a mild left shift seen on differential. He has hyponatremia, otherwise chemistry panel is normal. Transaminases low. His alkaline phosphatase is 139, CRP is 8.7, has also been consistently high since arrival. His urinalysis showed no evidence of infection. RADIOLOGY: CT of the spine as well as MRI of the lumbar spine reviewed. ASSESSMENT: 1. Metastatic non-small cell lung cancer. 2. Chronic leukocytosis because of his metastatic disease and suspicion for necrotic paraspinous tumor in particular. 3. Abnormal imaging of the spine, not due to an infectious process such as diskitis or osteomyelitis. 4. Cachexia. 5. Pain due to his metastatic disease. RECOMMENDATIONS: 1. Stop ceftriaxone and vancomycin. 2. On analgesics. 3. Discussed with the patient and his and they are understanding of the nature of his illness and that leukocytosis can be expected in the future. 4. Okay with me for discharge. SUNDEEP BOURGEOIS M.D. B[employer]LING BALL [employer]IGHER AND PACKER BOWLING BALL WEIGHER AND PACKER D Kerry MT: Lazaro
--- NOTE | 2019-12-31 11:17 | PC.NURSE ---
Blood cx is negative.
--- NOTE | 2020-01-04 15:12 | PC.NURSE ---
Blood cx are negative
== END 2019-12-26 16:00 | disposition home or self-care (01) | DRG 543 ==
PROVIDERS: Physician Assistant; Admitting Provider Internal Medicine; PCP Internal Medicine Hematology & Oncology; Visit Provider Internal Medicine
DX: C79.51 Secondary malignant neoplasm of bone (principal); C34.90 Malignant neoplasm of unspecified part of unspecified bronchus or lung; Z68.1 Body mass index [BMI] 19.9 or less, adult; R64 Cachexia; G89.3 Neoplasm related pain (acute) (chronic); D64.9 Anemia, unspecified
CPT/HCPCS: 36415; 71260; 72129; 72132; 72148; 74177; 80048; 80053; 80202; 81001; 85025; 85027; 86140; 87040; A9270; J0696; J1170; J3370; J7030; Q9967

== ENCOUNTER 2020-01-04 17:10 | Emergency (ER) | payer MEDICARE, SELFPAY ==
--- NOTE | ~2020-01-04 | CT_ITS ---
EXAMINATION: CT abdomen pelvis w con DATE: 01/04/2020 18:49 INDICATION: Constipation, dysuria and diffuse abdominal pain TECHNIQUE: Computed tomography (CT) of the abdomen and pelvis was performed with 100 mL Omnipaque-350 intravenous contrast. Automated exposure control and iterative reconstruction technique were employe d. The dose-length product was 201.86 mGy-cm. COMPARISON: CT dated 12/24/2019 and MRI dated 01/04/2019 FINDINGS: Lung bases are clear. Heart size is normal. No pericardial or pleural effusion. Central venous cathet er tip in the high right atrium. No pericardial or pleural effusion. 9 mm low-attenuation lesion with irregular peripheral margins in the right hepatic lobe with enhancement pattern on prior MRI most co nsistent with hemangioma. Spleen, pancreas, bilateral adrenal glands and kidneys are normal. Moderate amount of colonic stool at the sigmoid colon with layering fluid in the more distended proximal colo n consistent with given history of constipation and likely secondary diarrhea. No dilated small bowel to suggest obstruction. Bladder is normal. No free intraperitoneal gas or fluid. There is extensive soft tissue edema throughout the subcutaneous tissues as well as the mesenteric and retroperitoneal f at. No pathologically enlarged abdominal or pelvic lymphadenopathy. Again seen is a large region of paraspinal soft tissue centered at a lytic lesion at the anteroinferi or aspect of the L3 vertebral body but with relatively preserved L3-L4 disc space most likely related to metastatic disease. Additional lytic lesion likely related to metastatic disease at the iliac ac e of the left sacroiliac joint. Combined instrumented anterior and posterior L4-S1 spinal fusion with bilateral vertical petrona and pedicle screw fixation as well as petrona extending across the left side of t he vertebral bodies and intervening disc spaces. IMPRESSION: 1. Moderate amount of stool in the sigmoid and distal descending colon and fluid distending the more proximal colon consistent with given history of constipation likely secondary diarrhea. 2. Large paraspinal mass surrounding a lytic lesion at L3 without significant associated disc height loss at L3-L4 which would favor metastatic disease over infection as detailed on lumbar spine MRI eusebia ed 12/25/2019. 3. Anasarca. Reviewed, dictated and finalized at location A. IMPRESSION: 1. Moderate amount of stool in the sigmoid and distal descending colon and flui d distending the more proximal colon consistent with given history of constipat ion likely secondary diarrhea. 2. Large paraspinal mass surrounding a lytic lesion at L3 without significant a ssociated disc height loss at L3-L4 which would favor metastatic disease over i nfection as detailed on lumbar spine MRI dated 12/25/2019. 3. Anasarca.
[2020-01-04 17:30] VITALS: BP 99/67; PULSE 90; RESP 13; TEMP 36.5; O2SAT 98
--- NOTE | 2020-01-04 17:42 | ED.ABDPAIN ---
HPI - Abdominal Pain General Chief Complaint: Unspecified Stated Complaint: trouble urinating/having bowel movement Time Seen by Provider: 01/04/20 17:42 Source: patient Mode of arrival: ambulatory Limitations: no limitations History of Present Illness HPI narrative: 49-year-old man with a history of metastatic small cell lung cancer brought in today by his for vomiting, abdominal pain and no BM for 10 days. He was admitted [facility] approximately a week and half ago and was started on oral Dilaudid for pain control of his bone metastases. She states that he has had a poor appetite and she has been given him oral stool softener pills and 3 half cap fulls of MiraLax per day for least a week. He denies any dysuria, hematuria, blood in his stool, black stool, fever, cough, shortness breath or chest pain. MD elicited complaint: abdominal pain Pertinent past history: constipation Onset (ago): day(s) (10) Pain Consistency: constant Location: LLQ Severity: moderate Quality: cramping Radiation: none Migration to: no migration Exacerbating factors: nothing Relieving factors: nothing Associated symptoms: nausea, vomiting and constipation Related Data Home Medications Medication Instructions Recorded Confirmed alprazolam 0.5 mg PO TID PRN 03/04/19 01/04/20 calcium carbonate 600 mg PO TID 11/15/19 01/04/20 docusate sodium [Colace] 100 mg PO BID 12/23/19 01/04/20 fentanyl 50 mcg TRANSDERMAL Q48H 12/23/19 01/04/20 fentanyl 100 mcg TRANSDERMAL Q48H 12/23/19 01/04/20 ferrous sulfate 325 mg PO DAILY 12/23/19 01/04/20 morphine 60 mg PO BID 12/23/19 01/04/20 ondansetron HCl [Zofran] 4 mg PO Q6H 12/23/19 01/04/20 prochlorperazine maleate 10 mg PO Q6H PRN 12/23/19 01/04/20 [Compazine] Allergies Allergy/AdvReac Type Severity Reaction Status Date / Time bee venom protein (honey bee) Allergy Severe Anaphylaxis Verified 11/15/19 14:22 ibuprofen Allergy Intermediate Hives Verified 11/15/19 14:22 Review of Systems Constitutional: Constitutional: Denies chills, Denies fever(s) and Reports weakness Eyes: Eyes: Denies change in vision and Denies photophobia ENT: Denies dysphagia, Denies nasal congestion and Denies sore throat Cardiovascular: Cardiovascular: Denies chest pain and Denies radiating jaw, neck or arm pain Respiratory: Respiratory: Denies cough, Denies dyspnea and Denies wheezing Gastrointestinal: Gastrointestinal: Reports abdominal pain, Reports constipation, Denies diarrhea, Reports nausea and Reports vomiting Genitourinary: Genitourinary: Denies hematuria, Denies oliguria, Denies dysuria and Denies urinary frequency Musculoskeletal: Musculoskeletal: Reports back pain, Denies arthralgias and Denies joint swelling Integumentary/Breasts: Skin/Breast: Denies pruritus, Denies erythema and Denies rash Neurologic: Denies vertigo, Denies dizziness and Denies syncope Hematologic/Lymphatic: Hematologic/Lymphatic: Denies easy bleeding and Denies easy bruising Allergic/Immunologic: Allergic/Immunologic: Denies lip swelling, Denies throat swelling and Denies tongue swelling PMFSH Past Medical History Medical History Bone metastasis Metastatic squamous cell lung cancer to L3 and left sacroiliac region, status post palliative radiation in spring 2019. Chronic anemia Chronic pain syndrome Secondary to bony metastatic disease. On chronic opiate therapy. Non-small cell lung cancer Poorly differentiated squamous cell carcinoma diagnosed in 2018, status post radiation to a right upper lobe mass in the fall of 2018. Currently on Keytruda per Dr. Ochoa. CT of the chest, abdomen, and pelvis dated 10/04/2019 showed slight decrease in size of a right upper lobe mass with invasion of the chest wall, posterior lateral upper ribs, and adjacent vertebral bodies with pathologic vertebral body fractures and rib fractures, which were stable. Surgical History Surgical History (
[2020-01-04 18:00] VITALS: BP 106/75; PULSE 89; RESP 14; O2SAT 98
[2020-01-04 18:05] LABS: Hematocrit 25.6 % (40.0-54.0); Hemoglobin 7.4 g/dL (14.0-18.0); Mean Corpuscular HGB Conc 28.9 g/dL (32.0-36.0); Mean Corpuscular Volume 89.8 fL (78.0-102.0); Mean Platelet Volume 8.8 fl (8.7-11.0); Platelet Count Result 299 K/mm3 (150-420); Red Blood Count 2.85 M/mm3 (4.70-6.10)
[2020-01-04] MEDS: SODIUM CHLORIDE 0.9% IV 500 ML 999 ML IV CONT (18:05)
[2020-01-04] MEDS: ONDANSETRON INJ 4 MG/2 ML VIAL IV PUSH (18:08)
[2020-01-04 18:10] LABS: White Blood Count 25.7 K/mm3 (4.8-10.8)
[2020-01-04] MEDS: HYDROmorphone HCL 2 MG/ML VIAL 1 MG IV PUSH ×2 (18:10→20:01)
[2020-01-04 18:20] LABS: Alanine Aminotransferase 22 U/L (16-63); Albumin Level 2.5 g/dL (3.4-5.0); Alkaline Phosphatase 186 U/L (46-116); Anion Gap 6 mmol/L (8-16); Aspartate Amino Transferase 24 U/L (15-37); Bilirubin,Total 0.3 mg/dL (0.00-1.00); Blood Urea Nitrogen 21 mg/dL (7-18); Calcium 8.6 mg/dL (8.5-10.1); Carbon Dioxide 31 mmol/L (21-32); Chloride 99 mmol/L (98-108); Estimated CRCL calculation 72 ml/min; Estimated Glomerular Filt Rate > 60; Glucose 104 mg/dL (70-99); Osmolality Calculated 285 mOsm/kg (285-295); Potassium 3.9 mmol/L (3.5-5.1); Sodium 136 mmol/L (136-145); Total Protein 8.1 g/dL (6.4-8.2)
[2020-01-04 18:24] LABS: Total Cells Counted 100
[2020-01-04 18:25] LABS: Band Neutrophils Percent 0 % (0-6); Basophils Percent Manual 0 % (0-1); Eosinophils Percent Manual 0 % (1-6); Lymphocytes Absolute Manual 1.02 K/mm3 (1.1-4.5); Lymphocytes Percent Manual 4 % (18-44); Monocytes Absolute Manual 1.54 K/mm3 (0.1-0.90); Monocytes Percent Manual 6 % (3-9); Neutrophils Absolute Manual 23.13 K/mm3 (1.3-6.7); Neutrophils Percent Manual 90 % (46-73); Platelet Estimate Adequate (Adequate)
[2020-01-04 18:55] LABS: Add Urine Microscopic? NO; Appearance Urine Clear (Clear); Bilirubin Urine Negative (Negative); Blood Urine Negative (Negative); Color Urine Yellow (Yellow); Glucose Urine UA Negative (Negative); Ketones Urine Negative (Negative); Leukocyte Esterase Ur Negative LEU/UL (Negative); Nitrate Urine Negative (Negative); Protein Urine Negative (Negative); Urobilinogen Urine 0.2 mg/dL (0.2-1.0); pH Urine 6.5 (5.0-8.0)
[2020-01-04 19:00] VITALS: BP 111/78; PULSE 86; RESP 14; O2SAT 100
[2020-01-04 20:00] VITALS: BP 106/62; PULSE 85; RESP 14; TEMP 36.6; O2SAT 99
[2020-01-04 20:28] VITALS: BP 106/73; PULSE 85; RESP 12; O2SAT 99
== END 2020-01-04 20:30 | disposition home or self-care (01) ==
PROVIDERS: Emergency Provider Emergency Medicine; PCP Internal Medicine Hematology & Oncology
DX: K59.00 Constipation, unspecified (principal); C34.90 Malignant neoplasm of unspecified part of unspecified bronchus or lung; C79.51 Secondary malignant neoplasm of bone
CPT/HCPCS: 36415; 74177; 80053; 81003; 85025; 96361; 96374; 96375; 96376; 99282; 99284; J1170; J2405; J7040; Q9965

== ENCOUNTER 2020-01-12 07:29 | Outpatient (RCR) | payer MEDICARE, MEDICAID, SELFPAY ==
[2020-01-12] VITALS (9 sets, daily range): BP systolic 78–97; BP diastolic 58–83; PULSE 87–106; RESP 14; TEMP 36.9–37.6; O2SAT 99–100
[2020-01-12] MEDS: diphenhydrAMINE HCl CAP 25 MG CAPSULE PO (08:07)
[2020-01-12] MEDS: ACETAMINOPHEN 325 MG TABLET 650 MG PO (08:07)
[2020-01-12] MEDS: SODIUM CHLORIDE 0.9% IV 250 ML 30 ML IV CONT (08:25)
[2020-01-12] MEDS: FUROSEMIDE INJ 40 MG/4 ML VIAL 20 MG IV PUSH (11:04)
== END 2020-04-11 23:59 | disposition home or self-care (01) ==
LOC: ANHCPCTRAN 07:29
PROVIDERS: PCP Internal Medicine Hematology & Oncology; Visit Provider Internal Medicine Hematology & Oncology
DX: C34.90 Malignant neoplasm of unspecified part of unspecified bronchus or lung (principal)
CPT/HCPCS: 36430; 86850; 86900; 86901; 86923; 96374; A9270; J1940; J7050; P9016